=== PATIENT | female | born 1965 | race Caucasian/White ===

== ENCOUNTER → 2017-06-07 | Outpatient (CLI) | payer BC ==
[~2017-06-07] VITALS: Ht 165.1 cm; Wt 102.1 kg
[~2017-06-07] MED LIST: ASPIRIN81 M2 PO; COZAAR50 MG PO; ECONAZOLE NITRA15 GM TP; GLUCOPHAGE500 MG PO
[2017-06-07 13:04] LABS: POINT-OF-CARE METER ID UU14107333
[2017-06-07 15:43] LABS: POINT-OF-CARE METER ID UU13113819
== END | disposition home or self-care (01) ==
LOC: AMB 12:05
PROVIDERS: Internal Medicine Gastroenterology
DX: K25.9 Gastric ulcer, unspecified as acute or chronic, without hemorrhage or perforation (principal); K20.9 Esophagitis, unspecified; K21.9 Gastro-esophageal reflux disease without esophagitis; Z80.0 Family history of malignant neoplasm of digestive organs; E11.9 Type 2 diabetes mellitus without complications; R10.84 Generalized abdominal pain; Z79.84 Long term (current) use of oral hypoglycemic drugs; E78.5 Hyperlipidemia, unspecified; I10 Essential (primary) hypertension; E66.9 Obesity, unspecified; Z68.37 Body mass index [BMI] 37.0-37.9, adult; E55.9 Vitamin D deficiency, unspecified; G89.29 Other chronic pain; Z90.49 Acquired absence of other specified parts of digestive tract; Z79.82 Long term (current) use of aspirin; Z88.8 Allergy status to other drugs, medicaments and biological substances; Z90.710 Acquired absence of both cervix and uterus
CPT/HCPCS: 82948; 88173; 88305; 88342 TC; 93005; C9113; J2250; J2405; J3010

== ENCOUNTER → 2017-09-07 | Outpatient (CLI) | payer BC ==
[~2017-09-07] VITALS: Ht 165.1 cm; Wt 99.8 kg
[~2017-09-07] MED LIST changes: +OMEPRAZOLE40 M1 PO
== END | disposition home or self-care (01) ==
LOC: AMB 09-06 08:00 → OPR 09-06 09:30 → AMB 12:22
PROVIDERS: Internal Medicine Gastroenterology
PROC: 0DB68ZZ Excision of Stomach, Via Natural or Artificial Opening Endoscopic (ICD-10-PCS; principal; 2017-09-07)
DX: Z09 Encounter for follow-up examination after completed treatment for conditions other than malignant neoplasm (principal); Z87.11 Personal history of peptic ulcer disease; K21.9 Gastro-esophageal reflux disease without esophagitis; E11.9 Type 2 diabetes mellitus without complications; M19.079 Primary osteoarthritis, unspecified ankle and foot; Z79.82 Long term (current) use of aspirin; Z79.84 Long term (current) use of oral hypoglycemic drugs; Z88.1 Allergy status to other antibiotic agents; Z88.5 Allergy status to narcotic agent
CPT/HCPCS: 82948; 88305; 88342 TC